=== PATIENT | male | born 2000 | race Two or more races ===

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

== ENCOUNTER 2020-08-09 15:36 | Emergency (ER) | payer OTHER ==
[~2020-08-09] VITALS: Ht 165.1 cm; Wt 55.4 kg
[2020-08-09 16:23] VITALS: BP 119/73
[2020-08-09] MEDS: LIDOCAINE WITH 8.4% SOD BICARB 3 ML DISP.SYRIN. INJ ONE (17:30)
[2020-08-09] MEDS: DIPH,PERTUSS(ACELL),TET VAC/PF 0.5 ML SYRINGE. VAX IM ONE (17:40)
--- NOTE | 2020-08-09 18:35 | PHYS DOC ---
Past Medical History Past Medical History: No Pertinent History Past Surgical History: No Surgical History Smoking Status: Never Smoker Alcohol Use: None Drug Use: None General Adult EDM: Chief Complaint: LACERATION/AVULSION HPI: HPI: Patient is a 20 year old male who presents to the ED today with right upper eyebrow laceration, patient states he tripped and fell hitting his forehead on a table. Patient denies any loss of consciousness. Denies any neck pain speaking Review of Systems: Review of Systems: constitutional: Denies fever or chills. [] Eyes: Denies change in visual acuity. [] HENT: Denies nasal congestion or sore throat. [] Respiratory: Denies cough or shortness of breath. [] Cardiovascular: Denies chest pain or edema. [] GI: Denies abdominal pain, nausea, vomiting, bloody stools or diarrhea. [] : Denies dysuria. [] Musculoskeletal: Denies back pain or joint pain. [] Integument: Reports right upper eyebrow laceration Neurologic: Denies headache, focal weakness or sensory changes. [] Psychiatric: Denies depression or anxiety. [] Heart Score: Risk Factors: Risk Factors: DM, Current or recent (<one month) smoker, HTN, HLP, family history of CAD, obesity. Risk Scores: Score 0 - 3: 2.5% MACE over next 6 weeks - Discharge Home Score 4 - 6: 20.3% MACE over next 6 weeks - Admit for Clinical Observation Score 7 - 10: 72.7% MACE over next 6 weeks - Early Invasive Strategies Current Medications: Current Medications Medications (Trade) Dose Ordered Sig/Matt Start Time Stop Time Status Last Admin Dose Admin Diphtheria/ Tetanus/Acell Pertussis (ADACEL TDap SYRINGE) 0.5 ml ONCE ONCE 08/09/20 17:00 08/09/20 17:01 DC 08/09/20 17:40 0.5 ML Lidocaine HCl (Buffered Lidocaine 1%) 6 ml 1X ONCE 08/09/20 16:30 08/09/20 16:31 DC 08/09/20 17:30 6 ML Allergies: Allergies: Allergies Coded Allergies Type Severity Reaction Last Updated Verified No Known Drug Allergies 12/06/18 No Physical Exam: PE: Constitutional: Well developed, well nourished, no acute distress, non-toxic appearance. [] HENT: Normocephalic, bilateral external ears normal, oropharynx moist, no oral exudates, nose normal. [] Eyes: PERRLA, EOMI, conjunctiva normal, no discharge. [] Neck: Normal range of motion, no tenderness, supple, no stridor. [] Cardiovascular:Heart rate regular rhythm, no murmur [] Lungs & Thorax: Bilateral breath sounds clear to auscultation [] Abdomen: Bowel sounds normal, soft, no tenderness, no masses, no pulsatile masses. [] Skin: Medial aspect of the right upper eyebrow with a laceration approximately 3 cm round in vertical orientation. There is no eye involvement. Back: No tenderness, no CVA tenderness. [] Extremities: No tenderness, no cyanosis, no clubbing, ROM intact, no edema. [] Neurologic: Alert and oriented X 3, normal motor function, normal sensory function, no focal deficits noted. [] Psychologic: Affect normal, judgement normal, mood normal. [] Current Patient Data: Vital Signs: Vital Signs Date Time Temp Pulse Resp B/P (MAP) Pulse Ox O2 Delivery O2 Flow Rate FiO2 08/09/ 16:23 98.5 83 18 119/73 (88) 98 Room Air 98.5 EKG: EKG: [] Radiology/Procedures: Radiology/Procedures: Laceration/Wound Repair Laceration/Wound Repair : [] Wound Location: Right upper eyebrow Wound's Depth, Shape: Vertical Wound Length (cm): Approximately 3 cm Wound Explored: clean Irrigated w/ Saline (ccs): 20ml Betadine Prep?: Yes Anesthesia: 1% of buffered lidocaine Volume Anesthetic (ccs): Approximately 4 cc Wound Repaired With: Dissolvable gut Suture Size/Type: 5.0/6 Number of Sutures: Interrupted sutures [] Progress : Wound was left open to air Course & Med Decision Making: Course & Med Decision Making Pertinent Labs and Imaging studies reviewed. (See chart for details) This is a 20-year-old male patient who has right upper eyebrow laceration after falling, no loss of consciousness. No neck pain. Tetanus updated. Laceration repaired by me as noted in procedures. Wound care instructions and return precautions provided. Dragon Disclaimer: Jackie Disclaimer: This electronic medical record was generated, in whole or in part, using a voice recognition dictation system. Departure Departure Impression: Primary Impression: Eyebrow laceration Qualified Codes: S01.111A - Laceration without foreign body of right eyelid and periocular area, initial encounter Additional Impression: Fall from standing Qualified Codes: W19.XXXA - Unspecified fall, initial encounter Disposition: 01 DC HOME SELF CARE/HOMELESS Condition: STABLE Referrals: NO PCP (PCP) Follow-up with your doctor in 1 to 2 weeks as needed Patient Instructions: Facial Laceration, [id number] Additional Instructions: You have an eyebrow laceration that was closed with dissolvable stitches. You can shower and wash your face once or twice a day. Please apply Neosporin to the area twice a day. Monitor the area for any signs of infection including but not limited to increased redness, warmth, yellow drainage from the area and return to the ED. Follow-up with your doctor in 1 week SANGITA GRAF APRN Aug 09, 2020 18:35
== END 2020-08-09 18:45 | disposition home or self-care (01) ==
LOC: ER 15:36
DX: S01.111A Laceration without foreign body of right eyelid and periocular area, initial encounter (principal); W01.190A Fall on same level from slipping, tripping and stumbling with subsequent striking against furniture, initial encounter; Y93.89 Activity, other specified; Y92.89 Other specified places as the place of occurrence of the external cause; Y99.8 Other external cause status
CPT/HCPCS: 12013; 90471; 90715; 99284; J3490

== ENCOUNTER 2020-09-24 19:14 | Emergency (ER) | payer OTHER ==
[~2020-09-24] VITALS: Ht 160 cm; Wt 56.8 kg
--- NOTE | 2020-09-24 19:53 | RAD ---
EXAM: Chest, 2 views. HISTORY: Pain with inspiration. COMPARISON: 10/13/2019 FINDINGS: 2 views of the chest are obtained. There is no infiltrate, pleural effusion or pneumothorax . The heart is normal in size. IMPRESSION: No acute pulmonary finding. Electronically signed by: Allie Velez MD (09/24/2020 7:51 PM) [facility]
--- NOTE | 2020-09-24 20:14 | ED.ADGEN ---
Past Medical History Past Medical History: No Pertinent History Past Surgical History: No Surgical History Smoking Status: Never Smoker Alcohol Use: Rarely Drug Use: None General Adult EDM: Chief Complaint: CHEST PAIN HPI: HPI: Patient is a 20 year old male, accompanied by his mother, who presents emergency department complaints of pain in the left side of his chest that is worse with deep inspiration since approximately 1700 this evening. Patient denies any cough, fever, body aches, palpitations, nausea, vomiting, diarrhea, diaphoresis, sore throat, headache, numbness, tingling, or weakness. Patient denies feeling short of breath but reports that his pain increases when he takes a deep breath. He denies any medical or surgical history. The patient reports that his father has had a CVA in the past but denies any family history of CAD or [place]. He currently rates the pain a 2-3/10. He denies any alleviating factors the pain is provoked by deep breath. Review of Systems: Review of Systems: Complete ROS is negative unless otherwise noted in HPI. Allergies: Allergies: Allergies Coded Allergies Type Severity Reaction Last Updated Verified No Known Drug Allergies 12/06/18 No Physical Exam: PE: See Above Constitutional: Well developed, well nourished, no acute distress, non-toxic appearance. [] HENT: Normocephalic, atraumatic, bilateral external ears normal, nose normal. [] Eyes: PERRLA, EOMI, conjunctiva normal, no discharge. [] Neck: Normal range of motion, no stridor. [] Cardiovascular:Heart rate regular rhythm, left chest nontender palpation, no subcutaneous emphysema Lungs & Thorax: Respirations even and unlabored, no retractions, no respiratory distress, no wheeze Skin: Warm, dry, no erythema, no rash. [] Extremities: No cyanosis, ROM intact, no edema. [] Neurologic: Alert and oriented X 3, no focal deficits noted. [] Psychologic: Affect normal, judgement normal, mood normal. [] Current Patient Data: Vital Signs: Vital Signs Date Time Temp Pulse Resp B/P (MAP) Pulse Ox O2 Delivery O2 Flow Rate FiO2 09/24/20 19:16 98.7 86 12 147/78 (101) 100 Room Air 98.7 EKG: EK sinus rhythm rate 81, no STEMI, normal EKG, read by Dr. Trujillo [] Heart Score: HEART Score for Chest Pain: HEART Score for Chest Pain Response (Comments) Value History Slighlty/Non-Suspicious 0 ECG Normal 0 Age < 45 0 Risk Factors No Risk Factors 0 Total 0 Risk Factors: Risk Factors: DM, Current or recent (<one month) smoker, HTN, HLP, family history of CAD, obesity. Risk Scores: Score 0 - 3: 2.5% MACE over next 6 weeks - Discharge Home Score 4 - 6: 20.3% MACE over next 6 weeks - Admit for Clinical Observation Score 7 - 10: 72.7% MACE over next 6 weeks - Early Invasive Strategies Radiology/Procedures: Radiology/Procedures: PROCEDURE: CHEST PA & LATERAL EXAM: Chest, 2 views. HISTORY: Pain with inspiration. COMPARISON: 10/13/2019 FINDINGS: 2 views of the chest are obtained. There is no infiltrate, pleural effusion or pneumothorax. The heart is normal in size. IMPRESSION: No acute pulmonary finding. Electronically signed by: Allie Velez MD (09/24/2020 7:51 PM) [facility] Course & Med Decision Making: Course & Med Decision Making Pertinent Labs and Imaging studies reviewed. (See chart for details) 20-year-old male presents emergency department with complaints of left-sided chest pain with deep inspiration that began a few hours prior to arrival. EKG was unremarkable, vital signs are stable, patient is PERC negative. Chest x-ray revealed no acute findings. Vital signs are stable throughout the emergency department visit. I advised patient this is likely due to pleurisy. Prescription written for naproxen 500 mg p.o. twice daily x10 days. Patient provided with local primary care providers for further follow-up. Return to ER precautions given. Patient verbalized an understanding of home care, medications, follow-up, and return to ED instructions and was in agreement with the plan of care. [] Dragon Disclaimer: Dragon Disclaimer: This electronic medical record was generated, in whole or in part, using a voice recognition dictation system. Departure Departure Impression: Primary Impression: Pleurisy without effusion Additional Impression: Chest pain made worse by breathing Disposition: 01 DC HOME SELF CARE/HOMELESS Condition: STABLE Referrals: NO PCP (PCP) Patient Instructions: Chest Pain (Nonspecific), [id number], Pleurisy, [id number] Additional Instructions: Fill prescription(s) and use as directed. Avoid airway triggers such as smoke, fragrance, dust, and pollen. Follow-up with your primary care doctor in 1-2 days, return to the ER if symptoms worsen or fever develops. [facility] [address] [place] [address] [facility] [address] [place] [address] [facility] [address] [place] [address] [facility] [address] [place] [address] [facility] [address] [place] [address] [facility] [address] [place] [address] [facility] [address] [place] [address] [facility] [address] [place] [address] [facility] [address] [place] [address] [facility] [address] [place] [address] Scripts Naproxen (NAPROXEN) 500 Mg Tablet 1 TAB PO BID PRN for PAIN for 10 Days, #20 TAB 0 Refills Prov: MIGUEL ÁNGEL HSIEH APRN 09/24/20 PERC Rule for PE PERC Rule for PE PERC Rule for PE Response (Comments) Value Age > 50: No 0 HR > 100: No 0 Sa02 on room air <95%: No 0 Unilateral leg swelling: No 0 Hemoptysis: No 0 Recent surgery or trauma: No 0 Prior PE or DVT: No 0 Hormone use: No 0 Total 0 Problem Qualifiers MIGUEL ÁNGEL HSIEH APRN Sep 24, 2020 20:14
[2020-09-24] MEDS ORDERED: NAPR-514 PO (20:29)
[2020-09-24 20:52] VITALS: BP 121/68
--- NOTE | 2020-09-25 04:06 | EKG ---
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
== END 2020-09-24 20:57 | disposition home or self-care (01) ==
LOC: ER 19:14
DX: R07.1 Chest pain on breathing (principal); R09.1 Pleurisy
CPT/HCPCS: 71046; 93005; 99283